=== PATIENT | male | born 1970 | race Hispanic/Latino ===

== ENCOUNTER 2018-01-04 09:39 | Emergency (ER) | payer OTHER, SELFPAY ==
[2018-01-04 10:13] LABS: BASOPHILS % (AUTO) 0.7 % (0.0-5.0); EOSINOPHILS % (AUTO) 3.8 % (0.0-8.0); HEMATOCRIT 40.5 % (42-54); LYMPHOCYTES % (AUTO) 36.7 % (21.0-51.0); MEAN CORPUSCULAR HEMOGLOBIN 31.8 pg (27.0-33.0); MEAN CORPUSCULAR HGB CONC 34.6 g/dL (32.0-36.0); MEAN CORPUSCULAR VOLUME 91.7 fL (79-99); MONOCYTES % (AUTO) 5.6 % (3.0-13.0); NEUTROPHILS % (AUTO) 53.2 % (40.0-77.0); PLATELET COUNT (AUTO) 159 K/uL (130-400); RED BLOOD CELL COUNT(AUTO) 4.42 MIL/uL (4.50-6.20); RED CELL DISTRIBUTION WIDTH 13.8 % (11.0-15.5); WHITE BLOOD COUNT (AUTO) 4.5 K/uL (4.8-10.8)
[2018-01-04 10:21] LABS: CREATININE 1.2 mg/dL (0.5-1.5); POTASSIUM 4.6 mmol/L (3.5-5.1)
[2018-01-04 10:25] LABS: ALBUMIN 3.7 g/dL (3.5-5.0); BILIRUBIN,TOTAL 0.3 mg/dL (0.2-1.0); TOTAL PROTEIN, SERUM 7.7 g/dL (6.0-8.3)
== END 2018-01-04 10:47 | disposition home or self-care (01) ==
LOC: EDH 09:39
DX: L02.811 Cutaneous abscess of head [any part, except face] (principal); E11.9 Type 2 diabetes mellitus without complications; E78.5 Hyperlipidemia, unspecified; I10 Essential (primary) hypertension; Z91.013 Allergy to seafood; Z21 Asymptomatic human immunodeficiency virus [HIV] infection status
CPT/HCPCS: 36415; 80053; 85025

== ENCOUNTER 2022-09-16 15:44 | Emergency (ER) | payer OTHER ==
[~2022-09-16] VITALS: Ht 167.6 cm; Wt 77.1 kg
[2022-09-16 16:24] VITALS: BP 152/89
[2022-09-16 16:46] LABS: HEMATOCRIT 36.2 % (42-54); MEAN CORPUSCULAR HEMOGLOBIN 29.4 pg (27.0-33.0); MEAN CORPUSCULAR HGB CONC 33.4 g/dL (32.0-36.0); MEAN CORPUSCULAR VOLUME 87.9 fL (79-99); RED BLOOD CELL COUNT(AUTO) 4.12 MIL/uL (4.50-6.20); RED CELL DISTRIBUTION WIDTH 14.3 % (11.0-15.5); WHITE BLOOD COUNT (AUTO) 7.3 K/uL (4.8-10.8)
[2022-09-16 16:55] LABS: CREATININE 1.3 mg/dL (0.5-1.5); POTASSIUM 4.3 mmol/L (3.5-5.1)
[2022-09-16 17:00] LABS: ALBUMIN 3.5 g/dL (3.5-5.0)
[2022-09-16] MEDS ORDERED: IOHEXOL 350 MG/ML 100ML INFUS..BTL IV ONE (17:21)
[2022-09-16 18:28] LABS: APPEARANCE,URINE CLEAR (CLEAR); BILIRUBIN,URINE NEGATIVE (NEGATIVE); COLOR,URINE COLORLESS (YELLOW); GLUCOSE, URINE (UA) NEGATIVE (NEGATIVE); KETONES,URINE NEGATIVE (NEGATIVE); LEUKOCYTE ESTERASE ,URINE NEGATIVE Leu/uL (NEGATIVE); NITRATE,URINE NEGATIVE (NEGATIVE); OCCULT BLOOD,URINE NEGATIVE (NEGATIVE); PH,URINE 6.5 (5.0-8.0); PROTEIN,URINE 30 mg/dL (NEGATIVE); UROBILINOGEN,URINE 0.2 mg/dL (0.2-1.0)
[2022-09-16 18:29] LABS: RBC,URINE 0-1 /HPF (0-1); WBC,URINE 0-1 /HPF (0-1)
[2022-09-16] MEDS ORDERED: OMEP20TA20 PO (18:40)
== END 2022-09-16 18:55 | disposition home or self-care (01) ==
LOC: EDH 15:44
DX: K52.9 Noninfective gastroenteritis and colitis, unspecified (principal); F41.9 Anxiety disorder, unspecified; F32.A Depression, unspecified; E11.9 Type 2 diabetes mellitus without complications; E78.00 Pure hypercholesterolemia, unspecified; I10 Essential (primary) hypertension; Z79.899 Other long term (current) drug therapy; Z91.013 Allergy to seafood
CPT/HCPCS: 99285; 74177; 80053; 83690; 85027; 87324; 81001; 36415; Q9967

== ENCOUNTER 2025-01-05 14:23 | Emergency (ER) | payer BC, OTHER ==
[~2025-01-05] VITALS: Ht 167.6 cm; Wt 88.5 kg
[~2025-01-05 14:23] MED LIST: OMEP20TA20 PO
[2025-01-05 14:27] VITALS: TEMP 98.8
[2025-01-05 14:59] LABS: BASOPHILS # (AUTO) 0.03 K/uL (0.00-0.20); BASOPHILS % (AUTO) 0.6 % (0.0-5.0); EOSINOPHILS # (AUTO) 0.25 K/uL (0.00-0.70); EOSINOPHILS % (AUTO) 4.9 % (0.0-8.0); LYMPHOCYTES # (AUTO) 1.3 K/uL (1.0-4.8); LYMPHOCYTES % (AUTO) 25.8 % (21.0-51.0); MEAN CORPUSCULAR HEMOGLOBIN 31.5 pg (27.0-33.0); MEAN CORPUSCULAR HGB CONC 33.3 g/dL (32.0-36.0); MEAN CORPUSCULAR VOLUME 94.5 fL (79-99); MONOCYTES # (AUTO) 0.4 K/uL (0.1-1.0); MONOCYTES % (AUTO) 8.3 % (3.0-13.0); NEUTROPHILS # (AUTO) 3.1 K/uL (1.8-7.7); NEUTROPHILS % (AUTO) 60.4 % (40.0-77.0); PLATELET COUNT (AUTO) 173 K/uL (130-400); RED BLOOD CELL COUNT(AUTO) 3.81 MIL/uL (4.50-6.20); RED CELL DISTRIBUTION WIDTH 13.6 % (11.0-15.5); WHITE BLOOD COUNT (AUTO) 5.2 K/uL (4.8-10.8)
--- NOTE | 2025-01-05 15:01 | EKG ---
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
[2025-01-05 15:16] LABS: CREATININE 2.8 mg/dL (0.5-1.3); POTASSIUM 4.3 mmol/L (3.5-5.1)
[2025-01-05 15:36] VITALS: BP 105/65; PULSE 77; RESP 16; O2SAT 99
[2025-01-05] MEDS: DEXTROSE 50%-WATER 50 ML DISP.SYRIN IV ONE (15:44)
--- NOTE | 2025-01-05 16:42 | ERN ---
General Chief Complaint: Hypoglycemia Stated Complaint: HYPOGLYCEMIA Time Seen by MD: 14:29 Time Seen by Midlevel: 14:29 Source: patient History of Present Illness Initial Comments 54-year-old male presents to the emergency department by EMS due to hypoglycemia. Patient states his glucose was 102 this morning. Patient has been having syncopal episodes/dizzy spells ongoing for three months. Family found patient is sitting on the floor next to his car, patient was feeling very weak, and dizzy. Glucose checked was 54, patient drank a Coke. Per EMS patient's glucose was in the 70s. Patient denies any current symptoms, headache, chest pain, abdominal pain or further associated symptoms. PMHx DM, anxiety, depression, HTN, HIV Allergies: Coded Allergies: shellfish derived (Unverified Allergy, Unknown, 09/16/22) Home Meds Active Scripts Omeprazole (Omeprazole) 20 Mg Tablet.dr, 20 MG PO ONCE A DAY for DIARRHEA for 30 Days, #30 TAB 1 Refill Prov:DONG SMITH DNP 09/16/22 Past Medical History Past Medical History: Anxiety, Depression, Diabetes-Type II, High Cholesterol, HIV, Hypertension Past Surgical History: Other Surgical History Other: LT TOE AMPUTATION ROS Dictation Constitutional: Negative for fever,chills, and weight loss Eyes: Negative for injury, pain,redness, and discharge ENT: Negative for injury,pain or swelling Cardiovascular: Negative for chest pain, palpitations, and edema Respiratory: Negative for shortness of breath, cough, and wheezing, Abdomen/GI: Negative for abdominal pain, nausea, vomiting, diarrhea, and constipation Back: Negative for injury and pain : Negative for painful urination, bleeding or discharge MS/Extremity: Negative for injury and deformity Skin: Negative for rash, and discoloration Neuro: Positive for weakness, near-syncope, dizziness Negative for headache, numbness, tingling, and seizure Psych: Negative for suicide ideation, homicidal ideation, and hallucinations Physical Exam Physical Exam Dictation General: awake, alert, no acute distress Head/Face: Normocephalic, atraumatic Eyes: PERRL, EOMI, normal conjunctiva ENT: oral cavity clear, oral mucosa moist Neck: Supple, normal range of motion Cardiovascular: RRR, normal S1/S2 Respiratory: CTAB, no respiratory distress, no rales or wheezes Abdomen: Soft, non-tender, non-distended, normal bowel sounds, no guarding or rebound. Skin: Warm, dry, normal turgor, no rash MS/Extremity: Pulses equal, no cyanosis, neurovascular intact, FROM Neuro: COAx4, GCS 15, strength 5/5, CN 2-12 intact, normal cerebellar exam, normal gait Psych: Normal behavior, mood, and affect normal Results Laboratory and Microbiology Lab and Micro Result Laboratory Tests Test 01/05/25 14:53 01/05/25 15:29 01/05/25 16:24 White Blood Count 5.2 K/uL (4.8-10.8) Red Blood Count 3.81 MIL/uL (4.50-6.20) L Hemoglobin 12.0 g/dL (14.0-18.0) L Hematocrit 36.0 % (42-54) L Mean Corpuscular Volume 94.5 fL (79-99) Mean Corpuscular Hemoglobin 31.5 pg (27.0-33.0) Mean Corpuscular Hemoglobin Concent 33.3 g/dL (32.0-36.0) Red Cell Distribution Width 13.6 % (11.0-15.5) Platelet Count 173 K/uL (130-400) Mean Platelet Volume 10.3 fL (7.5-10.5) Immature Granulocyte % (Auto) 0.0 % (0-1) Neutrophils (%) (Auto) 60.4 % (40.0-77.0) Lymphocytes (%) (Auto) 25.8 % (21.0-51.0) Monocytes (%) (Auto) 8.3 % (3.0-13.0) Eosinophils (%) (Auto) 4.9 % (0.0-8.0) Basophils (%) (Auto) 0.6 % (0.0-5.0) Neutrophils # (Auto) 3.1 K/uL (1.8-7.7) Lymphocytes # (Auto) 1.3 K/uL (1.0-4.8) Monocytes # (Auto) 0.4 K/uL (0.1-1.0) Eosinophils # (Auto) 0.25 K/uL (0.00-0.70) Basophils # (Auto) 0.03 K/uL (0.00-0.20) Absolute Immature Granulocyte (auto 0.00 K/uL (0-1) Nucleated Red Blood Cells 0.0 % (0.0-0.19) Sodium Level 143 mmol/L (136-145) Potassium Level 4.3 mmol/L (3.5-5.1) Chloride Level 107 mmol/L (101-111) Carbon Dioxide Level 26 mmol/L (21-32) Blood Urea Nitrogen 29 mg/dL (7-18) H Creatinine 2.8 mg/dL (0.5-1.3) H Glomerular Filtration Rate Calc 26 mL/min (>90) Random Glucose 45 mg/dL (70-105) *L Total Calcium 8.6 mg/dL (8.5-10.1) Troponin I High Sensitivity 14 ng/L (4-75) Whole Blood Glucose 50 MG/DL (70-110) *L 90 MG/DL (70-110) # Bedside Glucose Comment Notified Nurse Labs Reviewed?: Yes MDM MDM: Differential diagnosis: Hypoglycemia, dehydrated, NIDHI Rationale: 54-year-old male presents to the emergency department by EMS due to hypoglycemia. Patient states his glucose was 102 this morning. Patient has been having syncopal episodes/dizzy spells ongoing for three months. Family found patient is sitting on the floor next to his car, patient was feeling very weak, and dizzy. Glucose checked was 54, patient drank a Coke. Per EMS patient's glucose was in the 70s. Patient denies any current symptoms, headache, chest pain, abdominal pain or further associated symptoms. PMHx DM, anxiety, depression, HTN, HIV Labs obtained indicate glucose of 45, BUN 29, creatinine 2.8. Bedside blood glucose in the ED was 50 therefore dextrose 50 was administered. On recheck patients glucose was 90. Admission was discussed with patient however he refused stated he wanted to go home since he had someone to take care of him. Patient was educated on the importance of the admission, however patient decided to sign out AMA. There are no social concerns with this patient. I independently interpreted the test that were performed, results were reviewed by me and considered findings on radiology if ordered. Medical management and examination interpretation discussions were had by me with other qualified healthcare professionals as indicated for the patient's care. ED Course Orders Procedure Category Date Status Time Cbc With Differential LAB 01/05/25 Complete 14:44 Basic Metabolic Panel LAB 01/05/25 Complete 14:44 Bedside Glucose CPOE 01/05/25 Transmitted Fingerstick 14:44 12 Lead Ekg Tracing- EKG 01/05/25 Complete Technical 14:44 Troponin I High LAB 01/05/25 Complete Sensitivity 14:44 Dextrose 50%-Water PHA 01/05/25 Complete (D50w) 15:30 Current Medications Medications (Trade) Dose Ordered Sig/Bennett Route PRN Reason Start Time Stop Time Status Last Admin Dose Admin Dextrose (D50w) 50 ml ONCE ONCE IV 01/05/25 15:30 01/05/25 15:32 DC 01/05/25 15:44 Vital Signs Date Time Temp Pulse Resp B/P (MAP) Pulse Ox O2 Delivery O2 Flow Rate FiO2 01/05/25 15:36 77 16 105/65 99 Room Air* 0 21 01/05/25 14:27 98.8 80 23 94/59 98 Room Air 0 DX & DISP Disposition: AMA Departure Impression: Primary Impression: Left against medical advice Additional Impressions: Hypoglycemia, NIDHI (acute kidney injury) Condition: Stable Referrals: CHRISTIE HERNANDEZ MD (PCP) I performed the substantive portion of the visit. I have reviewed and personally made and approve the management plan that is documented in the notes by myself or the [facility]. I acknowledge full responsibility for the patient's management plan. VIVIAN RIBERA January 05, 2025 16:42
--- NOTE | 2025-01-05 17:15 | NUR ---
AMA PATIENT LEFT AMA, I DC'A PATIENTS IV WITH CATH STILL INTACT AND APPLIED 2X2 GAUZE WITH TAPE I EXPLAINED TO PATIENT RISKS ABOUT LEAVING AMA WHICH HE AGREED, PATIENT AMBULATED OUT OF ED, ACCOMPANIED BY SISTER, NO COMPLICATIONS
== END 2025-01-05 16:52 | disposition left against medical advice (07) ==
LOC: EDH 14:23
DX: E11.649 Type 2 diabetes mellitus with hypoglycemia without coma (principal); E78.00 Pure hypercholesterolemia, unspecified; I10 Essential (primary) hypertension; N17.9 Acute kidney failure, unspecified; Z79.899 Other long term (current) drug therapy
CPT/HCPCS: 99284; 96365; 84484; 80048; 85025; 82948 ×2; 36415; 93005; J7070